=== PATIENT | male | born 1960 | race Caucasian/White ===

== ENCOUNTER 2023-12-27 10:02 | Emergency (ER) | payer SELFPAY ==
[2023-12-27 10:30] VITALS: BP 159/78; PULSE 70; RESP 18; TEMP 36.4; O2SAT 96; BMI 38.1
--- NOTE | 2023-12-27 10:38 | DI.RAD.S_ITS ---
PROCEDURE: XR ELBOW RT MIN 3V INDICATIONS: swelling and pain NO KNOWN INJURY TECHNIQUE: 3 views of the elbow were acquired. COMPARISON: None. FINDINGS: Bones: No fractures or dislocations. No suspicious bony lesions. Soft tissues: No elbow joint effusion. No suspicious soft tissue calcifications. IMPRESSION: Soft tissue swelling over the olecranon may reflect bursitis. No osseous erosions or fractures. Approved by: Boris Cook M.D. on 12/27/2023 at 10:39
--- NOTE | 2023-12-27 12:29 | ED.SKABFB ---
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 He noticed a small amount of swelling over the right elbow 3 weeks ago. He has not attempted to see his PCP for today's chief complaint. He is concerned that it is a, ?infection?. The patient denies night sweats, fever, chills, blunt force trauma to the area, numbness or tingling distally, wrist pain or recent illness. No treatments have been tried for this. Related Data Allergies Allergy/AdvReac Type Severity Reaction Status Date / Time No Known Drug Allergies Allergy Verified 12/27/23 10:38 Review of Systems <Gildardo Bernardo PA-C - Last Filed: 12/27/23 12:37> Review of Systems Narrative: General: See HPI MSK: See HPI All other review of systems have been reviewed and are ultimately negative unless otherwise stated in the HPI. Patient History <Gildardo Bernardo PA-C - Last Filed: 12/27/23 12:37> Social History Smoking Status: Current some day smoker Smoking Status: Current some day smoker tobacco type: cigarettes alcohol intake frequency: 0-2 drinks per day Substance Use Type: does not use Exam <Gildardo Bernardo PA-C - Last Filed: 12/27/23 12:37> Initial Vital Signs Initial Vital Signs: Vital Signs Temperature 97.5 F L 12/27/23 10:30 Pulse Rate 70 12/27/23 10:30 Respiratory Rate 18 12/27/23 10:30 Blood Pressure 159/78 H 12/27/23 10:30 Pulse Oximetry 96 12/27/23 10:30 Oxygen Delivery Method Room Air 12/27/23 10:30 Const General: cooperative, healthy appearing, comfortable, well developed and well groomed [facility] Head: normal to inspection, normocephalic and atraumatic Ears: hearing grossly normal bilaterally and external ears normal Face and sinus: normal facial exam Mouth: oral mucosae normal, lip normal and tongue normal Throat: posterior oropharynx normal and tonsils normal Eyes General: Yes appearance normal, both eyes and all related structures Neck Neck: normal visual inspection, full ROM and no meningeal signs Resp Effort & Inspection: normal respiratory effort and able to speak in complete sentences Auscultation: clear to auscultation bilaterally Cardio Rate: regular rate Rhythm: regular rhythm Heart Sounds: S1 normal and S2 normal Back/Spine/Pelvis Back: normal to inspection Skin General: no rashes or lesions noted, elasticity normal and turgor normal Neuro General: patient alert, patient awake and patient oriented x3 Extrem Right upper extremity: full ROM, normal capillary refill and elbow/forearm (Minimal soft tissue swelling versus fluid collection over the right elbow. ) Other: No excessive warmth to palpation. No lymphangitic streaking or cellulitis noted. Psych Appearance: grossly normal and well kempt Mental Status: mental status grossly normal <Ana Kerr DO - Last Filed: 12/28/23 07:11> Initial Vital Signs Initial Vital Signs: Vital Signs Temperature 97.5 F L 12/27/23 10:30 Pulse Rate 70 12/27/23 10:30 Respiratory Rate 18 12/27/23 10:30 Blood Pressure 159/78 H 12/27/23 10:30 Pulse Oximetry 96 12/27/23 10:30 Oxygen Delivery Method Room Air 12/27/23 10:30 Course <Gildardo Bernardo PA-C - Last Filed: 12/27/23 12:37> Course Course Narrative: Patient was seen and examined. There was a three-view right elbow x-ray series ordered which revealed fluid around the bursa which is likely olecranon bursitis. The patient was notified of the findings. An Gordon wrap was applied to the elbow by nursing staff. Patient was then prepped for discharge home. Orders Ordered: ED Orders 12/27/23 10:38 XR elbow RT min 3V Stat Vital Signs Vital signs: Vital Signs - 8 hr 12/27/23 10:30 Temperature 97.5 F L Pulse Rate 70 Respiratory Rate 18 Blood Pressure 159/78 H Pulse Oximetry 96 Oxygen Delivery Method Room Air <Ana Kerr DO - Last Filed: 12/28/23 07:11> Orders Ordered: ED Orders 12/27/23 10:38 XR elbow RT min 3V Stat Vital Signs Vital signs: Vital Signs - 8 hr 12/27/23 10:30 Temperature 97.5 F L Pulse Rate 70 Respiratory Rate 18 Blood Pressure 159/78 H Pulse Oximetry 96 Oxygen Delivery Method Room Air MDM - Skin/Abscess/Foreign Bdy <Gildardo Bernardo PA-C - Last Filed: 12/27/23 12:37> Differential Diagnosis Differential diagnosis: Likely abscess of skin or subcutaneous tissue, cellulitis and other (Olecranon bursitis, septic joint, deep space abscess, osteomyelitis) Medical Records Attestation: I reviewed the patient's medical records. MDM Narrative Medical decision making narrative: At this time, the patient appears to have olecranon bursitis. In the absence of fever and tachycardia with the his symptoms that have been ongoing for the past 3 weeks, I do not believe this is osteomyelitis, abscess, joint infection or sepsis. Patient is likely showing signs and symptoms of olecranon bursitis. An Gordon wrap was applied to the extremity. He has been instructed to follow up with his PCP for today's chief complaint. He understands the treatment plan. There were no additional questions at the time of discharge and he will follow up as requested. Discharge Plan Departure Patient Disposition: Home Clinical Impression: Olecranon bursitis of right elbow Instructions: Bursitis Activity Restrictions/Additional Instructions: Apply an Gordon wrap to the affected elbow as tolerated Apply moist heat to the affected area 10 minutes at a time 5 times a day Follow up your PCP this week for recheck Return here for any new, emergent concerns or if you worsen in any way Stand Alone Forms: Patient Portal/API ED Sign-out <Ana Kerr DO - Last Filed: 12/28/23 07:11> Cosign ED Attending Larryature Attestation: I was available for consultation.
--- NOTE | 2023-12-27 12:40 | PC.NURSE ---
Pt right c/o right elbow pain. Pt states he does heavy power lifting. Pt reports he is scheduled to go to the gym tomorrow; pt advised to take it easy on elbows. Pt states he has been using ALEVE for pain w/ not much improvement.
== END 2023-12-27 12:44 | disposition home or self-care (01) ==
PROVIDERS: Emergency Provider Physician Assistant
DX: M70.21 Olecranon bursitis, right elbow (principal)
CPT/HCPCS: 73080; 99281; 99283; 99284

== ENCOUNTER → 2024-06-13 16:43 | Outpatient (CLI) | payer SELFPAY ==
--- NOTE | 2024-06-13 16:47 | DI.RAD.S_ITS ---
PROCEDURE: XR LUMBAR SPINE 2-3V INDICATIONS: LOW BACK PAIN TECHNIQUE: 3 views of the lumbar spine were acquired. COMPARISON: None. FINDINGS: Lumbar spine curvature and alignment: Normal. T12 a short rudimentary ribs and L5 is sacralized Bones: There are no osseous abnormalities. Disc spaces: Mild degenerative disc disease from T12-L1 through L2-3 and moderate L4-5 degenerative disc and facet disease noted. Soft tissues: No soft tissue swelling, calcification or mass. IMPRESSION: Degeneration. T12 is short rudimentary ribs and L5 is sacralized Dictated by: Gustavo Herrera M.D. on 06/14/2024 at 10:40 Approved by: Gustavo Herrera M.D. on 06/14/2024 at 10:43
== END ==
LOC: RAD 16:46
PROVIDERS: Referring Provider Chiropractor; Visit Provider Chiropractor
DX: M51.35 Other intervertebral disc degeneration, thoracolumbar region (principal); M51.360 Other intervertebral disc degeneration, lumbar region with discogenic back pain only; M47.816 Spondylosis without myelopathy or radiculopathy, lumbar region
CPT/HCPCS: 72100

== ENCOUNTER 2025-02-22 09:09 | Emergency (ER) | payer SELFPAY ==
[2025-02-22 09:10] VITALS: BP 148/82; PULSE 88; RESP 16; TEMP 36.4; O2SAT 97; BMI 35.9
--- NOTE | 2025-02-22 09:28 | DI.RAD.S_ITS ---
PROCEDURE: XR FOOT RT 2V INDICATIONS: c/f osteo TECHNIQUE: 2 views of the foot were acquired. COMPARISON: None. FINDINGS: Bones: Poor x-ray penetration on AP view compromised evaluation. No acute fractures or dislocations. No definite osseous erosion. No suspicious bony lesions. Small plantar calcaneal enthesophyte. Soft tissues: No suspicious soft tissue calcifications. IMPRESSION: No definite radiographic signs of osteomyelitis. There is continued clinical concern, consider MRI for further evaluation. Approved by: Hiram Botello M.D. on 02/22/2025 at 10:07
--- NOTE | 2025-02-22 09:33 | ED_ITS ---
HPI - Wound/Laceration General Chief Complaint: Wound/Laceration Stated Complaint: Cut on bottom right foot,Diabetic,no blood thinner Time Seen by Provider: 02/22/25 09:11 Source: patient Mode of arrival: Ambulatory History of Present Illness HPI narrative: 64-year-old male with history of diabetes, well-controlled, smoking, presents with bleeding from slightly macerated small laceration on the lateral aspect of the 1st MCP. Patient states that he has a chronic bunion that he has been shaving down for years. Denies any history of amputations or significant infections not well controlled. Notes fever of 101.5 measured by sublingual thermometer day before yesterday accompanied with chills. denies nausea, vomiting, diarrhea, abdominal pain, chest pain, shortness of breath, dizziness, headache, and urinary symptoms. Related Data Previous Rx's ?Medication ?Instructions ?Recorded Saccharomyces boulardii 250 mg 250 mg PO BID #20 caps 02/22/25 capsule (Florastor) cephalexin 500 mg capsule 500 mg PO TID 7 days #21 cap s 02/22/25 sulfamethoxazole 800 1 tab PO BID 7 days #14 tabs 02/22/25 mg-trimethoprim 160 mg tablet (Bactrim DS) Allergies Allergy/AdvReac Type Severity Reaction Status Date / Time No Known Drug Allergies Allergy Verified 12/27/23 10:38 Review of Systems Review of Systems ROS Unobtainable: All systems reviewed & are unremarkable except as noted in HPI and below Patient History tobacco type: cigarettes alcohol intake frequency: 0-2 drinks per day Exam Narrative Exam Narrative: Patient with slightly macerated medial edge of right 1st MCP with of very superficial 0.5 cm laceration with no active bleeding. Also chronic appearing ulcer with reassuring margins on the plantar aspect of the 1st MCP. Initial Vital Signs Initial Vital Signs: Vital Signs Temperature 97.5 F L 02/22/25 09:10 Pulse Rate 88 02/22/25 09:10 Respiratory Rate 16 02/22/25 09:10 Blood Pressure 148/82 H 02/22/25 09:10 Pulse Oximetry 97 02/22/25 09:10 Oxygen Delivery Method Room Air 02/22/25 09:10 Const General: cooperative, healthy appearing, comfortable, well developed and well hydrated Nutritional Appearance: average body habitus HENMT Head: normal to inspection Ears: external ears normal Nose: external nose normal and nares normal Face and sinus: sinuses nontender, face symmetric, ecchymosis not on the right, not on the left and not bilaterally, erythema not on the right, not on the left and not bilaterally and edema not on the right, not on the left and not bilaterally Mouth: lip normal Eyes General: Yes appearance normal, both eyes and all related structures Eyelids: eyelids normal Sclera: sclerae normal Pupils: PERRL Neck Neck: normal visual inspection Resp Effort & Inspection: normal respiratory effort and able to speak in complete sentences GI Inspection: normal to inspection and non-distended Back/Spine/Pelvis Back: normal to inspection Skin General: no rashes or lesions noted Neuro General: patient alert, patient awake, patient oriented x3, gait normal, moves all extremities, normal light touch, pain and propioception, no focal motor deficits and CN's II-XI intact bilaterally Cognition: normal cognition Speech: speech normal Gait: normal gait Motor: muscle tone normal throughout Sensory Exam: no sensory deficits noted Extrem General: normal to inspection Psych Appearance: grossly normal Mental Status: mental status grossly normal Speech and Movement: speech and movement normal Mood: congruent mood Attitude: cooperative Thought Process: normal Thought Content: normal Judgment: judgment good Course Orders Ordered: ED Orders 02/22/25 09:28 XR foot RT 2V Stat 02/22/25 10:24 Complete Blood Count AUTO DIFF Stat Comprehensive Metabolic Panel Stat Lactate (Lactic Acid) Stat PTT Partial Thromboplastin Waldo Stat Procalcitonin Stat Prothrombin Time INR Stat Vital Signs Vital signs: Vital Signs - 8 hr 02/22/25 09:10 Temperature 97.5 F L Pulse Rate 88 Respiratory Rate 16 Blood Pressure 148/82 H Pulse Oximetry 97 Oxygen Delivery Method Room Air MDM - Wound/Laceration Lab Data 02/22/25 10:24 02/22/25 10:24 Labs: Lab Results 02/22/25 Range/Units 10:24 WBC 6.9 (4.5-11.0) X10^3/uL RBC 5.63 (4.5-5.9) X10^6/uL Hgb 17.1 (13.5-17.5) g/dL Hct 50.5 (41-53) % MCV 89.7 (80-100) fL MCH 30.4 (26-34) PG MCHC 33.9 (30-36) % RDW 14.3 (11.6-14.8) % Plt Count 211 (150-400) X10^3/uL Neut % (Auto) 72.1 (50-75) % Lymph % (Auto) 18.5 L (25-40) % [place] % (Auto) 8.1 (3-14) % Eos % (Auto) 0.7 L (2-4) % Baso % (Auto) 0.6 (0-2) % Neut # (Auto) 5000 (5590-9417) /uL Lymph # (Auto) 1300 (4014-2214) /uL [place] # (Auto) 600 (0-900) /uL Eos # (Auto) 0 (0-450) /uL Baso # (Auto) 0 (0-100) /uL PT 12.0 (9.4-12.5) SECONDS INR 1.1 (0.9-1.3) APTT 29 (25.1-36.5) SECONDS Sodium 138 (137-145) mmol/L Potassium 4.1 (3.4-5.1) mmol/L Chloride 104 (98-107) mmol/L Carbon Dioxide 23 (22-32) mmol/L BUN 21 H (9-20) mg/dL Creatinine 0.94 (0.66-1.25) mg/dL Estimated GFR > 60 (>60) mL/min BUN/Creatinine Ratio 22.3 H (6-22) Glucose 228 H (70-99) mg/dL Lactate 1.3 (0.7-2.1) mmol/L Calcium 9.1 (8.4-10.2) mg/dL Total Bilirubin 0.4 (0.2-1.3) mg/dL AST 25 (17-59) IU/L ALT 26 (<50) IU/L Alkaline Phosphatase 69 (38-126) U/L Total Protein 7.2 (6.3-8.2) g/dL Albumin 4.2 (3.5-5.0) g/dL Globulin 3.0 (1.7-4.1) g/dL Albumin/Globulin Ratio 1.4 (1.0-2.8) MDM Narrative Medical decision making narrative: Patient presents w/wound concerning for mild cellulitis. Bloodwork performed to evaluate for evidence of severe bacterial infection, severe anemia, electrolyte abnl (including hypokalemia, hyperkalemia, hypernatremia, hyponatremia, hyperglycemia, hypoglycemia, etc). X-rays to rule out osteomyelitis, necrotizing fasciitis. No Duplex indicated as I considered but do not suspect DVT. Re-eval Patient with reassuring lab work and x-ray, stable for discharge on antibiotics. Discharge Plan Departure Patient Disposition: Home Clinical Impression: Cellulitis in diabetic foot Instructions: DI for Cellulitis -- Adult Activity Restrictions/Additional Instructions: Return to the emergency department for any pus drainage, fever, redness at the site, or any other concern. Keep your foot as elevated and dry as possible. Mientras tanto, si la herida empiece a enrojecerse, sacar pus, si tienes fiebre o cualquier otra stephane, por favor vuelve a urgencias. Prescriptions: New cephalexin 500 mg capsule 500 mg PO TID 7 Days Qty: 21 0RF sulfamethoxazole-trimethoprim [Bactrim DS] 800-160 mg tablet 1 tab PO BID 7 Days Qty: 14 0RF Saccharomyces boulardii [Florastor] 250 mg capsule 250 mg PO BID Qty: 20 0RF Rx Instructions: As needed to prevent loose stool Stand Alone Forms: Patient Portal/API
[2025-02-22 10:37] LABS: Add Manual Diff / Slide Review NO; Hematocrit 50.5 % (41-53); Hemoglobin 17.1 g/dL (13.5-17.5); Lymphocytes Absolute Auto 1300 /uL (1100-4500); Mean Corpuscular HGB Conc 33.9 % (30-36); Mean Corpuscular Hemoglobin 30.4 PG (26-34); Mean Corpuscular Volume 89.7 fL (80-100); Platelet Count 211 X10^3/uL (150-400)
[2025-02-22 10:45] LABS: INR 1.1 (0.9-1.3); Prothrombin Time 12.0 SECONDS (9.4-12.5)
[2025-02-22 10:48] LABS: PTT Partial Thromboplastin Tim 29 SECONDS (25.1-36.5)
[2025-02-22 10:51] LABS: Alanine Aminotransferase 26 IU/L (<50); Albumin 4.2 g/dL (3.5-5.0); Albumin Globulin Ratio 1.4 (1.0-2.8); Alkaline Phosphatase 69 U/L (38-126); Blood Urea Nitrogen 21 mg/dL (9-20); Calcium 9.1 mg/dL (8.4-10.2); Carbon Dioxide 23 mmol/L (22-32); Chloride 104 mmol/L (98-107); Estimated Glomerular Filt Rate > 60 mL/min (>60); Globulin 3.0 g/dL (1.7-4.1); Glucose 228 mg/dL (70-99); HEMOLYSIS 16 (0-50); Lactate (Lactic Acid) 1.3 mmol/L (0.7-2.1); Potassium 4.1 mmol/L (3.4-5.1); Sodium 138 mmol/L (137-145); Total Protein 7.2 g/dL (6.3-8.2)
[2025-02-22 11:07] LABS: Procalcitonin 0.331 ng/mL (<0.5)
[2025-02-22 12:17] VITALS: BP 149/70; PULSE 66; RESP 12; O2SAT 94
--- NOTE | 2025-02-22 12:17 | PC.NURSE ---
Bandaid applied to left ribeiro.
== END 2025-02-22 12:18 | disposition home or self-care (01) ==
PROVIDERS: Emergency Provider Emergency Medicine
DX: E11.621 Type 2 diabetes mellitus with foot ulcer (principal); L03.115 Cellulitis of right lower limb; L97.519 Non-pressure chronic ulcer of other part of right foot with unspecified severity
CPT/HCPCS: 36415; 73620; 80053; 83605; 84145; 85025; 85610; 85730; 99281; 99284